=== PATIENT | male | born 1930 | race Caucasian/White ===

== ENCOUNTER → 2016-06-16 | Outpatient (CLI) | payer OTHER | LOC: CIMAGING 13:16 | PROVIDERS: ATTEND Surgery | DX: M79.671 Pain in right foot (principal); M85.80 Other specified disorders of bone density and structure, unspecified site; M77.31 Calcaneal spur, right foot | CPT/HCPCS: 73650-PO ==

== ENCOUNTER → 2016-08-07 | Outpatient (CLI) | payer OTHER | LOC: BHFA 14:00 | PROVIDERS: ATTEND Internal Medicine Cardiovascular Disease | DX: Z01.810 Encounter for preprocedural cardiovascular examination (principal) | CPT/HCPCS: 78452; 93017; A9500; J2785 ==

== ENCOUNTER → 2016-08-20 | Day surgery (SDC) | payer OTHER ==
[~2016-08-20] MED LIST: ACETAMINOPHEN 500 MG TAB PO PRN; ALBUTEROL 3 ML DEYVIAL IH PRN; BACITRACIN 50,000 UNITS/10 ML SYR IRR ONE; BUPIVACAINE 0.25% 30 ML SDV ONE; BUPIVACAINE/EPI 0.25% 30 ML SDV ONE; HYDROCODONE/APAP 5/325 TAB PO PRN; LABETALOL HCL 50 MG/10 ML SYR IVP PRN; LIDOCAINE 1% 2 ML INJ ID PRN; LIDOCAINE 2% 5 ML SDV ONE; LR 1,000 ML IV ONE; NALOXONE HCL 0.4 MG/ML INJ IVP PRN; ONDANSETRON 4 MG/2 ML VIAL IVP PRN; POLYMYXIN B SULFATE 500,000 UNIT/10 ML SYR IRR ONE; PROPOFOL/EMULSION 500 MG/50 ML BOTTLE IV ONE; ceFAZolin 2 GM/DEXTROSE 100 ML IV ONE; fentaNYL 100 MCG/2 ML INJ IVP PRN
--- NOTE | 2016-08-20 06:57 | PDANEPAE ---
ANE History of Present Illness non healing ulcer r foot ANE Past Medical History - Cardiovascular History Hx Hypertension: Yes Hx Arrhythmias: No Hx Chest Pain: No Hx Coronary Artery / Peripheral Vascular Disease: No Hx CHF / Valvular Disease: No Hx Palpitations: No - Pulmonary History Hx COPD: No Hx Asthma/Reactive Airway Disease: No Hx Recent Upper Respiratory Infection: No Hx Oxygen in Use at Home: No - Neurologic History Hx Cerebrovascular Accident: No Hx Seizures: No - Endocrine History Hx Diabetes: No Hypothyroid: No Hyperthyroid: No - Renal History Hx Renal Disorders: Yes - Liver History Hx Hepatic Disorders: No - Neurological & Psychiatric Hx Hx Neurological and Psychiatric Disorders: Yes ANE Review of Systems - Exercise capacity Exercise capacity: limited by disability - Systems Constitutional: Reports: no symptoms EENMT: Reports: no symptoms Cardiac: Reports: no symptoms Respiratory: Reports: no symptoms Gastrointestinal: Reports: no symptoms Muscolosketal: Reports: other (r foot ulcer, frx r leg) ANE Patient History - Allergies Allergies/Adverse Reactions: codeine Allergy (Intermediate, Verified 08/20/16 06:44) NAUSEA,LOOPY - Anes Hx Anes Hx: no prior problems - Smoking Hx Smoking Status: Former smoker - Alcohol Use Alcohol Use: Heavy - Family Anes Hx Family Anes Hx: none ANE Labs/Vital Signs - Vital Signs Height: 170.18 cm Weight: 63.503 kg ANE Physical Exam - Airway Mallampati Score: Class 2 Mouth exam: poor dentition - Pulmonary Pulmonary: no respiratory distress - Cardiovascular Cardiovascular: regular rate and rhythym - ASA Status ASA Status: III ANE Anesthesia Plan Anesthesia Plan: MAC
[2016-08-20 07:02] VITALS: RESP 16
--- NOTE | 2016-08-20 07:19 | PDHPUP ---
History & Physical Update H&P update statement: This history and physical update is based on an assessment of the patient which was completed after admission or registration (within 24 hours), but prior to the surgery/procedure. H&P update: H&P reviewed & patient examined, no change in patient's condition since H&P completed
--- NOTE | 2016-08-20 08:43 | POSTOPPROG ---
Post Op Note Date of Operation: 08/20/16 Surgeon: Norman Braun Print Cutter: none Anesthesiologist: amirah Anesthesia: IV Sedation (20cc .25% marcaine) Pre-op Diagnosis: osteomyelitis right calcaneus Post-op Diagnosis: same Indication: bone infection Procedure: debridement of osteomyelitis right calcaneus Findings: bone erosion with no abcess Inf/Abcess present in the surg proc area at time of surgery?: Yes Depth: Deep Incisional (Fascial) (including bone) Total fluids administered: none Drains: Other (none)
--- NOTE | 2016-08-20 08:44 | POSTANESTH ---
Post Anesthetic Evaluation Cardiovascular Status: Normal, Stable Respiratory Status: Normal, Stable Level of Consciousness/Mental Status: Can Participate in Eval Pain Control: Adequate, Prn Tx Ordered Nausea/Vomiting Control: Adequate, Prn Tx Ordered Complications Possibly Related to Anesthesia: None Noted
[2016-08-20 09:48] VITALS: TEMP 97.7
[2016-08-20 09:53] VITALS: O2SAT 95
[2016-08-20 09:59] VITALS: BP 154/75; PULSE 78
--- NOTE | 2016-08-20 14:29 | GOP ---
[f rep st] OPERATIVE REPORT DATE OF OPERATION: 08/20/2016 SURGEON: Norman Braun DPM GRANULATING MACHINE OPERATOR: None. ANESTHESIA: Local with MAC. ANESTHESIOLOGIST: Robbie Randolph MD. PREOPERATIVE DIAGNOSIS: 1. Chronic ulceration, plantar medial right calcaneus. 2. Osteomyelitis right calcaneus. POSTOPERATIVE DIAGNOSIS: 1. Chronic ulceration, plantar medial right calcaneus. 2. Osteomyelitis right calcaneus. PROCEDURE PERFORMED: 1. Debridement of right calcaneus for osteomyelitis. 2. Adjacent tissue transfer for foot ulceration defect right. FINDINGS: ESTIMATED BLOOD LOSS: Less than 20 cc. DESCRIPTION OF PROCEDURE: Patient presented to [facility] and was cleared for the int ended procedure. Patient was taken to the operating room and placed on table in supine position. I V sedation was started per the anesthesia department. At this time, patient was moved into a prone position. Following completion of this, the area was anesthetized in an infiltrative nerve block fa shion. Foot was prepped, scrubbed, and draped in usual sterile fashion. A pneumatic ankle tourniqu et was placed on the right extremity but was not inflated. At this time, attention was directed to the obvious ulceration on the plantar medial surface of the right calcaneus. It was decided that 2 converging semi-elliptical incisions would be made around the ulceration tissue. This was made full thickness, and the ulcerative tissue was dissected free and removed. It was sent in for culture an d sensitivity at this time. Upon completion of this, dissection was continued down to the level of the calcaneus. A [place] elevator was utilized to reflect the periosteum both dorsal and plantar to a llow for adequate visualization to the calcaneus. At this point, there was noted to be some erosion of the calcaneus that had occurred. Utilizing an osteotome and mallet, this area was resected down to healthy solid bone. The bone was sent in for culture and sensitivity to be followed up by patho logical evaluation. Upon completion of this, the IV antibiotics were started. The area was flushed with 3 L of antibiotic rinse in a pulse lavage fashion. There was no evidence of any abscess forma tion or purulent drainage from the site. It was decided that primary closure would be obtained. De ep closure was obtained with 3-0 Vicryl followed by subcutaneous closure with 5-0 Vicryl and skin cl osure with 3-0 nylon. The areas were dressed with Betadine-soaked Adaptics, 4 x 4's, Kerlix, and Co ban. Patient was taken to recovery room, vital signs stable, vascular supply intact digits 1 throug h 5 bilaterally. PATHOLOGY: Bone and soft tissue specimen sent for culture and sensitivity and pathological evaluati on. HEMOSTASIS: None. MATERIALS: None. INJECTABLES: 20 cc 0.25% Marcaine plain preoperatively. COMPLICATIONS: None. /[id number]/MODL
== END | disposition home or self-care (01) ==
LOC: FSGY 06:28
PROVIDERS: ATTEND Podiatrist Primary Podiatric Medicine
PROC: 0QBL0ZX Excision of Right Tarsal, Open Approach, Diagnostic (ICD-10-PCS; principal; 2016-08-20 07:15)
PROC: 0J9Q0ZX Drainage of Right Foot Subcutaneous Tissue and Fascia, Open Approach, Diagnostic (ICD-10-PCS; principal; 2016-08-20 07:15)
PROC: 0JXQ0ZZ Transfer Right Foot Subcutaneous Tissue and Fascia, Open Approach (ICD-10-PCS; principal; 2016-08-20 07:15)
DX: E11.69 Type 2 diabetes mellitus with other specified complication (principal); M86.171 Other acute osteomyelitis, right ankle and foot; E11.621 Type 2 diabetes mellitus with foot ulcer; L97.419 Non-pressure chronic ulcer of right heel and midfoot with unspecified severity; E78.5 Hyperlipidemia, unspecified; J44.9 Chronic obstructive pulmonary disease, unspecified; I10 Essential (primary) hypertension; F17.200 Nicotine dependence, unspecified, uncomplicated
CPT/HCPCS: J0690; J2704

== ENCOUNTER 2017-01-29 16:32 | Inpatient (IN) | payer OTHER ==
--- NOTE | 2017-01-29 17:00 | CPEKG ---
Heart Rate: 95 RR Interval: 632 P-R Interval: 188 QRSD Interval: 92 QT Interval: 352 QTC Interval: 443 P [place]: 54 QRS [place]: 9 T Wave [place]: 11 EKG Severity - ABNORMAL ECG - EKG Impression: SINUS RHYTHM EKG Impression: PROBABLE INFERIOR INFARCT, AGE INDETERMINATE EKG Impression: BORDERLINE R WAVE PROGRESSION, ANTERIOR LEADS Electronically Signed By: Sravanthi Onofre 29-Jan-2017 19:19:16
[2017-01-29 17:15] LABS: % IMMATURE GRANULYOCYTES 0.7 % (0.0-1.1); ABSOLUTE IMMATURE GRANULOCYTES 0.08 10^3/uL (0.00-0.10); ADD DIFF? NO; ADD MORPH? NO; ADD SCAN? NO; ATYPICAL LYMPHOCYTE FLAG 0 (0-99); FRAGMENT RBC FLAG 0 (0-99); HEMATOCRIT 23.1 % (40.0-51.0); HEMOGLOBIN 7.9 g/dL (13.7-17.5); LEFT SHIFT FLG 0 (0-99); LIPEMIA HEMOLYSIS FLAG 90 (0-99); MEAN CELL HEMOGLOBIN 31.7 pg (27.9-34.1); MEAN CELL HEMOGLOBIN CONCENTR. 34.2 g/dL (32.4-36.7); MEAN CELL VOLUME 92.8 fL (81.5-99.8); PLATELET CLUMPS FLAG 40 (0-99); PLATELET COUNT 481 10^3/uL (150-400); RED BLOOD CELL COUNT 2.49 10^6/uL (4.40-6.38); RED CELL DISTRIBUTION WIDTH 14.8 % (11.5-15.2)
[2017-01-29] MEDS ORDERED: PANTOPRAZOLE SODIUM 80 MG in NS 100 ML IV ONE (17:19)
--- NOTE | 2017-01-29 17:24 | EDPHY ---
H & P Time Seen by Provider: 01/29/17 16:40 HPI/ROS: CHIEF COMPLAINT: GI bleeding HISTORY OF PRESENT ILLNESS: 86-year-old male with a history of peptic ulcer disease and chronic renal insufficiency presents with rectal bleeding. According to the patient, his hematocrit was checked today and was quite low at 23. He had 1 episode of bloody stool. Associated with a few days of soreness in his abdomen, but no localized abdominal pain. No prior history of GI bleeding. No dizziness or increased weakness. REVIEW OF SYSTEMS: Constitutional: No fever, no chills Eyes: No visual changes ENT: No sore throat Respiratory: No cough, no shortness of breath Cardiac: No chest pain Gastrointestinal: No nausea, no vomiting Genitourinary: No hematuria, no dysuria Musculoskeletal: No leg pain or swelling Skin: No rash Neurological: No headache Psychiatric: No depression Past Medical/Surgical History: Chronic renal insufficiency Peptic ulcer disease Social History: No recent alcohol Smoking Status: Former smoker Physical Exam: General Appearance: Alert, pleasant, smiling Eyes: Pupils equal and round, conjunctival pallor ENT, Mouth: Mucous membranes dry Neck: Normal inspection Respiratory: Lungs are clear to auscultation Cardiovascular: Regular rate and rhythm Gastrointestinal: Abdomen is soft and nontender Rectal: Melena Neurological: A&O, nonfocal exam Skin: Warm and dry Extremities: Normal inspection Psychiatric: Mood and affect normal Constitutional: Initial Vital Signs Temperature (C) 37 C 01/29/17 16:45 Heart Rate 88 01/29/17 16:45 Respiratory Rate 18 01/29/17 16:45 Blood Pressure 181/85 H 01/29/17 16:45 O2 Sat (%) 92 01/29/17 16:45 O2 Delivery Mode Room Air Allergies/Adverse Reactions: codeine Allergy (Intermediate, Verified 08/20/16 06:44) NAUSEA,LOOPY NSAIDS (Non-Steroidal Anti-Inflamma Allergy (Verified 01/29/17 16:45) Home Medications: Medication Instructions Recorded Acetaminophen [Tylenol ES 500 mg 1,000 mg PO BID #0 08/20/16 (*)] Citalopram [CeleXA] 20 mg PO DAILY #0 08/20/16 Cyclobenzaprine [Flexeril 10 MG 10 mg PO HS #0 08/20/16 (*)] Atorvastatin Calcium [Lipitor 10 10 mg PO DAILY 01/29/17 mg (*)] Herbals/Supplements -Info Only 1 ea PO DAILY 01/29/17 Lisinopril [Zestril 5 mg (*)] 5 mg PO DAILY 01/29/17 Medical Decision Making - Diagnostics EKG Interpretation: EKG interpreted by me reveals normal sinus rhythm, rate 95, inferior Q-waves, poor R-wave progression. Impression: Abnormal EKG ED Course/Re-evaluation: This patient presents with melena and hematocrit of 23. Most likely secondary to peptic ulcer disease, with known history of peptic ulcer disease. 2 IVs placed, IV normal saline 500 mL and Protonix IV drip was started. 1 U packed red blood cells given. Risks and benefits of transfusion discussed with the patient and he consents to a transfusion. The patient was stable throughout his emergency department stay. No further episodes of melena. Dr. Douglass was consulted for admission. Dr. Lockwood was consulted and will see the patient in the hospital. Differential Diagnosis: Differential diagnosis includes though not limited to esophageal varices, peptic ulcer disease, diverticular bleed, AVM, hemorrhagic shock - Data Points Laboratory Results: Laboratory Results 01/29/17 17:04 01/29/17 17:04 01/29/17 01/29/17 01/29/17 17:15 17:04 17:04 WBC 12.10 10^3/uL H 10^3/uL (3.80-9.50) RBC 2.49 10^6/uL L 10^6/uL (4.40-6.38) Hgb 7.9 g/dL L g/dL (13.7-17.5) POC Hgb Hct 23.1 % L % (40.0-51.0) POC Hct MCV 92.8 fL fL (81.5-99.8) MCH 31.7 pg pg (27.9-34.1) MCHC 34.2 g/dL g/dL (32.4-36.7) RDW 14.8 % % (11.5-15.2) Plt Count 481 10^3/uL H 10^3/uL (150-400) MPV 9.0 fL fL (8.7-11.7) Neut % (Auto) 72.9 % % (39.3-74.2) Lymph % (Auto) 16.3 % % (15.0-45.0) [place] % (Auto) 9.2 % % (4.5-13.0) Eos % (Auto) 0.6 % % (0.6-7.6) Baso % (Auto) 0.3 % % (0.3-1.7) Nucleat RBC Rel Count 0.0 % % (0.0-0.2) Absolute Neuts (auto) 8.83 10^3/uL H 10^3/uL (1.70-6.50) Absolute Lymphs (auto) 1.97 10^3/uL 10^3/uL (1.00-3.00) Absolute Monos (auto) 1.11 10^3/uL H 10^3/uL (0.30-0.80) Absolute Eos (auto) 0.07 10^3/uL 10^3/uL (0.03-0.40) Absolute Basos (auto) 0.04 10^3/uL 10^3/uL (0.02-0.10) Absolute Nucleated RBC 0.00 10^3/uL 10^3/uL (0-0.01) Immature Gran % 0.7 % % (0.0-1.1) Immature Gran # 0.08 10^3/uL 10^3/uL (0.00-0.10) POC Sodium Sodium 130 mEq/L L mEq/L (134-144) POC Potassium Potassium 4.4 mEq/L mEq/L (3.5-5.2) POC Chloride Chloride 98 mEq/L mEq/L (97-110) Carbon Dioxide 20 mEq/l L mEq/l (22-31) Anion Gap 12 mEq/L mEq/L (8-16) POC BUN BUN 83 mg/dL H mg/dL (7-23) Creatinine 2.1 mg/dL H mg/dL (0.7-1.3) POC Creatinine Estimated GFR 30 Glucose 113 mg/dL H mg/dL (70-100) POC Glucose Calcium 10.0 mg/dL mg/dL (8.5-10.4) Stool Occult Bld Scrn POSITIVE H (NEGATIVE) 01/29/17 17:01 WBC RBC Hgb POC Hgb 7.8 gm/dL L gm/dL (13.7-17.5) Hct POC Hct 23 % L % (40-51) MCV MCH MCHC RDW Plt Count MPV Neut % (Auto) Lymph % (Auto) [place] % (Auto) Eos % (Auto) Baso % (Auto) Nucleat RBC Rel Count Absolute Neuts (auto) Absolute Lymphs (auto) Absolute Monos (auto) Absolute Eos (auto) Absolute Basos (auto) Absolute Nucleated RBC Immature Gran % Immature Gran # POC Sodium 133 mEq/L L mEq/L (134-144) Sodium POC Potassium 4.1 mEq/L mEq/L (3.3-5.0) Potassium POC Chloride 102 mEq/L mEq/L (97-110) Chloride Carbon Dioxide Anion Gap POC BUN 82 mg/dL H mg/dL (7-23) BUN Creatinine POC Creatinine 2.4 mg/dL H mg/dL (0.7-1.3) Estimated GFR Glucose POC Glucose 116 mg/dL H mg/dL (70-100) Calcium Stool Occult Bld Scrn Medications Given: Pantoprazole Sodium 80 mg/ (Sodium Chloride) 100 mls @ 10 mls/hr IV Q10H ONE Stop: 01/30/17 03:18 Last Admin: 01/29/17 18:11 Dose: 100 mls Discontinued Medications Sodium Chloride (Ns) 500 mls @ 0 mls/hr IV EDNOW ONE; Wide Open PRN Reason: Protocol Stop: 01/29/17 18:22 Last Admin: 01/29/17 18:00 Dose: 500 mls Point of Care Test Results: 01/29/17 17:01 POC Sodium 133 L POC Potassium 4.1 POC Chloride 102 POC BUN 82 H POC Creatinine 2.4 H POC Glucose 116 H Departure - Departure Disposition: [facility] Inpatient Acute Clinical Impression: Severe anemia Gastrointestinal hemorrhage Qualifiers: GI bleed type/associated pathology: melena Qualified Code(s): K92.1 - Melena Condition: Fair
[2017-01-29 17:30] LABS: ANION GAP 12 mEq/L (8-16); CARBON DIOXIDE 20 mEq/l (22-31); CHLORIDE 98 mEq/L (97-110); CREATININE 2.1 mg/dL (0.7-1.3); GLOMERULAR FILTRATION RATE 30; GLUCOSE 113 mg/dL (70-100); POTASSIUM 4.4 mEq/L (3.5-5.2); SODIUM 130 mEq/L (134-144)
[2017-01-29] MEDS ORDERED: ONDANSETRON 4 MG/2 ML VIAL IVP PRN (17:40)
[2017-01-29] MEDS ORDERED: LORazepam 2 MG/ML INJ IVP PRN (17:44)
[2017-01-29] MEDS ORDERED: NS 500 ML IV ONE (18:21)
--- NOTE | 2017-01-29 18:40 | GHP ---
[f rep st] HISTORY AND PHYSICAL DATE OF ADMISSION: 01/29/2017 CHIEF COMPLAINT: Melena. HISTORY OF PRESENT ILLNESS: An 86-year-old male with a history of peptic ulcer disease and chronic k idney disease, who presents after noting melena by outpatient care provider. In the emergency depart ment patient denies any active abdominal discomfort. Denies any lightheadedness, chest pain, shortne ss of breath. Denies emesis. Denies difficulty taking food or changes in his oral intake. Simply w as being evaluated for his chronic indwelling Mcarthur catheter when he was noted to have melenic-appear ing stools and was diverted to the emergency department for evaluation. The patient notes he has a history of peptic ulcer disease. Does not believe he has had a significan t bleed in the past. Reports that he has had a colonoscopy in near past but cannot recall when. Hayde ieves that it was normal. PAST MEDICAL HISTORY: 1. Peptic ulcer disease. 2. Chronic kidney disease. 3. 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 SOCIAL HISTORY: Patient was a heavy smoker, 2-3 packs a day until a year ago. Now he smokes a cigar ette or two a day. The patient reports drinking 4-5 alcoholic beverages starting at noon, in the aft ernoon until the evening. Denies any illicit drugs or marijuana. ADVANCE DIRECTIVE: The patient is do not resuscitate. His daughter is his MD KELLEE. REVIEW OF SYSTEMS: A 10-point review of systems is negative, with the exception of that reported in the HPI. PHYSICAL EXAMINATION: VITAL SIGNS: Blood pressure 181/85, heart rate 88, respiratory rate 18. 92% on room air, 37.0. GENERAL: This is a thin-appearing male lying flat in bed. HEENT: Notable for mo ist mucous membranes. Eye exam is negative for any icterus. CARDIAC: Patient is regular rate and rh ythm. PULMONARY: Clear to auscultation bilaterally. GASTROINTESTINAL: Positive bowel sounds. Abd omen is soft, mildly tender to palpation in the right lower quadrant. No rebound or guarding. UROLO GIC: There is a chronic indwelling catheter with a leg bag. MUSCULOSKELETAL: Negative for any lowe r extremity edema. SKIN: Negative for any rashes. NEUROLOGIC: The patient is moving all 4 extremi ties. PSYCHIATRIC: He is pleasant and cooperative on interview and examination. DATA: White count 12.1, appears near his baseline. Hemoglobin 7.9, hematocrit 23.1, and platelets o f 481. Sodium 133, creatinine 2.1, BUN 83, blood glucose 116. EKG, which I personally reviewed and interpreted, shows sinus rhythm, normal axis, normal intervals, with no acute ST-T changes. ASSESSMENT AND PLAN: This is an 86-year-old male, presenting with melena. 1. Suspected acute upper gastrointestinal bleed. The patient has a history of peptic ulcer disease with a very heavy alcohol consumption reported at home. Suspect we have a gastric source for his ble eding, either from ulcer disease, alcohol-related gastritis. Will admit the patient. Establish appr opriate peripheral access. Transfuse with packed red blood cells and continue normal saline maintena nce fluids. Discussed the case with Gastroenterology. Will plan for esophagogastroduodenoscopy in t he morning. 2. Alcohol abuse. The patient reports taking 4-5 alcoholic beverages an evening. He describes them as small; however, it is consistent use at a high level daily. Will place a CIWA protocol and monit or the patient for any evolving signs of withdrawal. Have written for intravenous thiamin. 3. Chronic kidney disease. Patient appears near his baseline creatinine at 2.1. Can follow after b lood and fluid resuscitation. His BUN is elevated likely secondary to his gastrointestinal bleed. 4. Peptic ulcer disease. Will place the patient on intravenous proton pump inhibitor drip until sco ping is complete tomorrow. 5. Hypertension. Will not treat his blood pressure currently, as I suspect it is related to the str ess of his presentation. He is certainly at risk more for hypotension in the setting of acute bleed than anything. 6. Prophylaxis. Lovenox is contraindicated. Will place sequential compression devices. 7. Diet. Nothing by mouth with intravenous fluids. DISPOSITION: I expect him less than 2 midnights if the patient's EGD is successful and identifies a treatable source. I have discussed the case with the emergency room physician. Patient will be tria ged to the medical-surgical floor for care. /[id number]/MODL
[2017-01-29] MEDS: THIAMINE HCL 500 MG in NS 100 ML IV SCH (21:24)
[2017-01-29] MEDS: PANTOPRAZOLE SODIUM 80 MG in NS 100 ML IV SCH (21:26)
[2017-01-29] MEDS: NS 1,000 ML IV SCH (22:36)
[2017-01-30] MEDS: PANTOPRAZOLE SODIUM 80 MG in NS 100 ML IV SCH (04:12)
[2017-01-30 05:02] LABS: % IMMATURE GRANULYOCYTES 0.6 % (0.0-1.1); ABSOLUTE IMMATURE GRANULOCYTES 0.06 10^3/uL (0.00-0.10); ADD DIFF? NO; ADD MORPH? YES; ADD SCAN? NO; ATYPICAL LYMPHOCYTE FLAG 0 (0-99); FRAGMENT RBC FLAG 0 (0-99); LEFT SHIFT FLG 0 (0-99); LIPEMIA HEMOLYSIS FLAG 90 (0-99); MEAN CELL HEMOGLOBIN 30.7 pg (27.9-34.1); MEAN CELL HEMOGLOBIN CONCENTR. 33.9 g/dL (32.4-36.7); MEAN CELL VOLUME 90.5 fL (81.5-99.8); MEAN PLATELET VOLUME 8.8 fL (8.7-11.7); PLATELET CLUMPS FLAG 0 (0-99); PLATELET COUNT 329 10^3/uL (150-400); RED BLOOD CELL COUNT 1.99 10^6/uL (4.40-6.38); RED CELL DISTRIBUTION WIDTH 15.9 % (11.5-15.2)
[2017-01-30 05:09] LABS: HEMOGLOBIN 6.1 g/dL (13.7-17.5)
[2017-01-30 05:19] LABS: ANION GAP 9 mEq/L (8-16); CALCIUM 8.6 mg/dL (8.5-10.4); CARBON DIOXIDE 21 mEq/l (22-31); CHLORIDE 106 mEq/L (97-110); CREATININE 1.9 mg/dL (0.7-1.3); GLOMERULAR FILTRATION RATE 34; GLUCOSE 88 mg/dL (70-100); MAGNESIUM 2.2 mg/dL (1.6-2.3); POTASSIUM 4.3 mEq/L (3.5-5.2); SODIUM 136 mEq/L (134-144)
[2017-01-30 05:32] LABS: MICROCYTES 1+; PLATELET ESTIMATE ADEQUATE (ADEQ); POLYCHROMASIA 1+
[2017-01-30] MEDS: THIAMINE HCL 500 MG in NS 100 ML IV SCH (10:35)
[2017-01-30] MEDS: NS 1,000 ML IV SCH (10:36)
--- NOTE | 2017-01-30 12:26 | PDANEPAE ---
ANE History of Present Illness GI bleed ANE Past Medical History - Cardiovascular History Hx Hypertension: Yes Hx Arrhythmias: No Hx Chest Pain: No Hx Coronary Artery / Peripheral Vascular Disease: No Hx CHF / Valvular Disease: No Hx Palpitations: No - Pulmonary History Hx COPD: No Hx Asthma/Reactive Airway Disease: No Hx Recent Upper Respiratory Infection: No Hx Oxygen in Use at Home: No Hx Sleep Apnea: No Sleep Apnea Screening Result - Last Documented: Positive - Neurologic History Hx Cerebrovascular Accident: No Hx Seizures: No - Endocrine History Hx Diabetes: No - Renal History Hx Renal Disorders: Yes Renal History Comment: DIALYSIS X 6WKS, 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 FX RIGHT FEMUR, ANE Review of Systems Review of Systems: ANE Patient History - Allergies Allergies/Adverse Reactions: codeine Allergy (Intermediate, Verified 08/20/16 06:44) NAUSEA,LOOPY NSAIDS (Non-Steroidal Anti-Inflamma Allergy (Verified 01/29/17 16:45) - Home Medications Home Medications: Acetaminophen [Tylenol ES 500 mg (*)] 1,000 mg PO BID #0 08/20/16 [Last Taken ] Citalopram [CeleXA] 20 mg PO DAILY #0 08/20/16 [Last Taken 08/19/16] Cyclobenzaprine [Flexeril 10 MG (*)] 10 mg PO HS #0 08/20/16 [Last Taken ] Atorvastatin Calcium [Lipitor 10 mg (*)] 10 mg PO DAILY 01/29/17 [Last Taken Unknown] Herbals/Supplements -Info Only 1 ea PO DAILY 01/29/17 [Last Taken Unknown] Lisinopril [Zestril 5 mg (*)] 5 mg PO DAILY 01/29/17 [Last Taken Unknown] - NPO status NPO Since - Liquids (Date): 01/29/17 NPO Since - Liquids (Time): 23:55 NPO Since - Solids (Date): 01/29/17 NPO Since - Solids (Time): 23:55 - Smoking Hx Smoking Status: Former smoker - Family Anes Hx Family Hx Anesthesia Complications: NONE ANE Labs/Vital Signs - Labs Result Diagrams: 01/30/17 04:45 01/30/17 04:45 - Vital Signs Blood Pressure: 119/58 Heart Rate: 95 Respiratory Rate: 12 O2 Sat (%): 97 Height: 170.18 cm Weight: 55.7 kg ANE Physical Exam - Airway Neck exam: FROM Mallampati Score: Class 2 Mouth exam: poor dentition - Pulmonary Pulmonary: no respiratory distress - Cardiovascular Cardiovascular: regular rate and rhythym - ASA Status ASA Status: III ANE Anesthesia Plan Anesthesia Plan: GA with mask
[2017-01-30] MEDS ORDERED: PROPOFOL 200 MG/20 ML VIAL ONE (12:30)
[2017-01-30] MEDS ORDERED: LIDOCAINE 2% 5 ML SDV ONE (12:31)
--- NOTE | 2017-01-30 12:52 | POSTOPPROG ---
Post Op Note Date of Operation: 01/30/17 Surgeon: Ezequiel Lockwood Anesthesiologist: Tarik Guzman MD Anesthesia: Other (Specify) (IV general) Pre-op Diagnosis: UGI bleed from PUD Post-op Diagnosis: Duodenal ulcerations, clean based, but deep Indication: melena, post hemorrhgic anemia Procedure: egd and bx Findings: large deep duodenal ulcerations, not bleeding Inf/Abcess present in the surg proc area at time of surgery?: No EBL: Minimal (few ml from antral bx) Total fluids administered: 200 ml NS Complications: none immediate
[2017-01-30] MEDS ORDERED: OXYCODONE/APAP 5/325 TAB PO PRN (13:04)
[2017-01-30] MEDS ORDERED: ACETAMINOPHEN 500 MG TAB PO PRN (13:04)
[2017-01-30] MEDS ORDERED: HYDROCODONE/APAP 5/325 TAB PO PRN (13:04)
[2017-01-30] MEDS ORDERED: NALOXONE HCL 0.4 MG/ML INJ IVP PRN (13:04)
[2017-01-30] MEDS ORDERED: HYDROmorphONE/DILAUDID 1 MG/ML INJ IVP PRN (13:04)
[2017-01-30] MEDS ORDERED: ONDANSETRON 4 MG/2 ML VIAL IVP PRN (13:04)
[2017-01-30] MEDS ORDERED: NS 500 ML IV PRN (13:04)
[2017-01-30] MEDS ORDERED: fentaNYL 100 MCG/2 ML INJ IVP PRN (13:04)
[2017-01-30] MEDS ORDERED: ALBUTEROL 3 ML DEYVIAL IH PRN (13:04)
--- NOTE | 2017-01-30 13:09 | GIREPORT ---
[facility] - Endoscopy Department Patient Name: Pérez Cullen Procedure Date: 01/30/2017 12:34 PM Patient Type: Inpatient Attending MD/ ER Physician: Doug Briggs Procedure: Upper GI endoscopy Indications: Acute post hemorrhagic anemia, Melena Providers: Edgar Lockwood MD Medicines: Total IV Anesthesia (TIVA) Complications: No immediate complications. Estimated blood loss: Minimal. Description of Procedure: After obtaining informed consent, the endoscope was passed under direct vision. Throughout the procedure, the patient's blood pressure, pulse, and oxygen saturations were monitored continuously. The Endoscope was intro duced through the mouth, and advanced to the second part of duodenum. [facility] GI endoscopy was accomplished without difficulty. The patient tolerated th e procedure well. Findings: The examined esophagus was normal. Diffuse mildly erythematous mucosa without bleeding was found in the ga stric antrum. Biopsies were taken with a cold forceps for histology. Estimate d blood loss was minimal. Two non-bleeding cratered duodenal ulcers with no stigmata of bleeding were found in the first portion of the duodenum and in the second portion of the duodenum. The largest lesion was 7 mm in largest dimension. The exam was otherwise without abnormality. Estimated Blood Loss: Estimated blood loss was minimal. Post Op Diagnosis: - Normal esophagus. - Erythematous mucosa in the antrum. Biopsied. - Multiple non-bleeding duodenal ulcers with no stigmata of bleeding. - The examination was otherwise normal. Recommendation: - Await pathology results. - My office will call with the pathology result with 5-7 days. If you h ave not heard from my office by 12-14, do not assume the pathology is anuel l, please call [phone] to get the pathology results. - Use Protonix (pantoprazole) 40 mg PO BID for 4 weeks. The daily for additional 4 weeks. 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 - Cardiac diet. - [facility] patient to [facility] for [facility] care. - Do an upper GI series at appointment to be scheduled. I would like to see how deep those ulcerations are - will discuss with radiology. - Thank you for allowing me to help in your patient's care. Do not hesi cortez to call with any questions. Attending Participation: I personally performed the entire procedure. Fabián Hernández M.D Edgar Lockwood MD 01/30/2017 1:09:14 PM This report has been signed electronicallyMathew MD Fabián Number of Addenda: 0 Note Initiated On: 01/30/2017 12:34 PM [email or web address]
--- NOTE | 2017-01-30 14:49 | HOSPPROG ---
Hospitalist Progress Note Assessment/Plan: DIAGNOSES: -acute upper GI bleed -post hemorrhagic anemia hemoglobin at 6 -acute hemodynamic induced renal failure, improving PLANS: -he is receiving his 2nd unit transfuse red blood cells at this time -continue proton pump inhibitors -observe for stability -repeat blood counts, consider further transient based on blood counts and hemodynamics, ability to ambulate well etc -plan on repeat endoscopy for healing after set weeks SUBJECTIVE: Seen after endoscopy today Denies nausea, abdominal pain, chest discomfort dyspnea or other concerning symptoms at this time No further bleeding or melena noted OBJECTIVE Vitals reviewed: Mild attention otherwise normal Exam: alert oriented skin warm dry color ok resps not labored lungs clear BSs heart regular abd soft nondistended nontender, bowel sounds present limbs warm, no edema iv site ok Laboratory data: Hemoglobin down to 6 this morning Platelets stable Creatinine down to 1.9 Objective: Vital Signs Temp Pulse Resp BP Pulse Ox 36.7 C 83 16 162/89 H 96 01/30/17 13:45 01/30/17 13:45 01/30/17 13:45 01/30/17 13:45 01/30/17 13:45 Laboratory Results 01/30/17 04:45 01/30/17 04:45 01/29/17 01/30/17 01/31/17 06:59 06:59 06:59 Intake Total 700 250 Output Total 500 300 Balance 200 -50 ICD10 Worksheet Patient Problems: Problems Problem Status Onset Gastrointestinal hemorrhage Acute Severe anemia Acute
--- NOTE | 2017-01-30 16:26 | GCON ---
[f rep st] CONSULTATION DATE OF CONSULTATION: 01/30/2017 REFERRING PHYSICIAN: Mara Douglass MD INDICATION FOR CONSULTATION: Presumed upper GI bleed. HISTORY OF PRESENT ILLNESS: The patient is a pleasant 86-year-old man with past medical history sign ificant for chronic kidney disease, peptic ulcer disease, history of choledocholithiasis, status post ERCP, stent placement, and subsequent cholecystectomy. He was sent to the hospital after outpatient care provider recognized that he had had melena. Patient states that he has had diarrhea for a number of days, but this has stopped. It is not sure if this is melena. He said he did not look at the stoo l. He does have an indwelling Mcarthur catheter for which he was being evaluated at the time that the ca re provider recognized he had melena. He was noted to have a significant decrease in hemoglobin and h ematocrit, elevated BUN and creatinine, consistent with an upper GI bleed. He is admitted to further that treatment, and I am called to help evaluate and treat in that regard. PAST MEDICAL HISTORY: Peptic ulcer disease, chronic kidney disease, status post cholecystectomy, ind welling Mcarthur catheter. SOCIAL HISTORY: Alcohol: He drinks at least 4-5 margaritas during the day. He used to smoke 2-3 pack s until a year ago. He now smokes a few cigarettes a day. FAMILY HISTORY: No GI cancers, malignancies to his knowledge. PAST SURGICAL HISTORY: Cholecystectomy. Indwelling Mcarthur catheter. MEDICATIONS: In hospital include Ativan p.r.n., Zofran p.r.n., pantoprazole 80 mg IV, thiamine. ALLERGIES: Codeine, which causes confusion. REVIEW OF SYSTEMS: A complete review of systems was performed and is negative other than that noted in the HPI. Other pertinent negatives include no chest pain, diaphoresis, palpitations, nausea, vomit ing, dysphagia, odynophagia, or early satiety. PHYSICAL EXAM: GENERAL: Chronically ill-appearing, elderly male sitting in his bed. No acute distres s. VITAL SIGNS: Blood pressure 119/58, pulse 88, respirations are 12. He is 95 heart rate, 97% on alice m air. Temperature is 36.6. EYES: Anicteric. CHANTELLE. EOMI. MOUTH: No lesions. He is edentulous. NECK: S upple. No JVD. BACK: No spine tenderness. No CVA tenderness. LUNGS: Coarse breath sounds. I do not ap preciate any rhonchi, rales, or egophony. CARDIAC: S1, S2. Regular rate and rhythm. ABDOMEN: Bowel so unds are normal in pitch and frequency. Abdomen is soft with mild epigastric, subxiphoid tenderness. No rebound. No guarding. No hepatosplenomegaly. EXTREMITIES: No cyanosis, clubbing, edema. NEUROLOGIC : Cranial nerves intact. Nonfocal. SKIN: No rashes. GENITOURINARY: He does have a chronic indwelling catheter. LABORATORY DATA: From today (01/30/2017): WBC 9.57, hemoglobin 6.1, hematocrit 18.1. sodium 136, p otassium 4.3, chloride 106, bicarb is 21, BUN 84, creatinine 1.9. Previous laboratory data from June o this year (07/22/2016): Hemoglobin was 10.7, hematocrit 31.7, creatinine 1.8, BUN 25. ASSESSMENT: Posthemorrhagic anemia with melena, elevated BUN and creatinine, consistent with upper g astrointestinal bleed in this 86-year-old male with chronic renal failure. RECOMMENDATIONS: 1. Continue PPI. 2. EGD for evaluation of presumed upper GI bleed. 3. 2 units packed red blood cells already ordered by hospitalists. 4. Stable hemoglobin and hematocrit. Transfuse if hemoglobin less than 7. 5. Avoid aspirin, nonsteroidal anti-inflammatory drugs for now. 6. Further recommendations to follow results of EGD. Thank you for allowing me to participate in this patient's healthcare. Do not hesitate to call me ruma piedra. /[id number]/MODL
[2017-01-30] MEDS ORDERED: LISINOPRIL 5 MG TAB PO SCH (16:29)
[2017-01-30] MEDS ORDERED: hydrALAZINE 25 MG TAB PO PRN (16:31)
--- NOTE | 2017-01-30 16:58 | ASMTCMCOM ---
CM Note CM Note Notes: Pt. is an 86-year-old man who goes by "Kelton' with DNR status. Pt. admitted with a GI hemorrhage. Pt. receiving blood. Experiencing fatigue. Getting an EGD. Hx. peptic ulcer disease. Pt. reportedly lives with his , uses a wheelchair mostly, and goes to [employer] adult day program. Daughter who is MDPOA reportedly lives only "1 mile away" per RN. PT recommending Home w/ 24-hour supervision vs HC vs H. OT has not consulted yet. CM to follow Pt. for d/c POC. TBD at this time. Date Signed: 01/30/2017 04:57 PM Electronically Signed By:Tiesha Davison LCSW
[2017-01-30] MEDS: ATORVASTATIN CALCIUM 10 MG TAB PO SCH (17:06)
[2017-01-30] MEDS: CITALOPRAM 20 MG TAB PO SCH (17:06)
--- NOTE | 2017-01-30 17:53 | PDMN ---
Medical Necessity Medical necessity: Pt meets INPT criteria per MD as of 01/30/17; est. LOS >2 MN for eval/mgmt of acute UGI bleed, anemia requiring ongoing transfusion, acute hemodynamic induced renal failure, significant htn per MD progress note.
[2017-01-30] MEDS: PANTOPRAZOLE SODIUM 40 MG TAB PO SCH (20:15)
[2017-01-31 06:46] LABS: % IMMATURE GRANULYOCYTES 0.6 % (0.0-1.1); ABSOLUTE IMMATURE GRANULOCYTES 0.06 10^3/uL (0.00-0.10); ADD DIFF? NO; ADD MORPH? NO; ADD SCAN? NO; ATYPICAL LYMPHOCYTE FLAG 0 (0-99); FRAGMENT RBC FLAG 0 (0-99); HEMATOCRIT 26.7 % (40.0-51.0); HEMOGLOBIN 9.2 g/dL (13.7-17.5); LEFT SHIFT FLG 0 (0-99); LIPEMIA HEMOLYSIS FLAG 90 (0-99); MEAN CELL HEMOGLOBIN 31.2 pg (27.9-34.1); MEAN CELL HEMOGLOBIN CONCENTR. 34.5 g/dL (32.4-36.7); MEAN CELL VOLUME 90.5 fL (81.5-99.8); MEAN PLATELET VOLUME 8.9 fL (8.7-11.7); PLATELET CLUMPS FLAG 0 (0-99); PLATELET COUNT 328 10^3/uL (150-400); RED BLOOD CELL COUNT 2.95 10^6/uL (4.40-6.38); RED CELL DISTRIBUTION WIDTH 15.6 % (11.5-15.2)
[2017-01-31 06:50] LABS: ALANINE AMINOTRANSFERASE 21 IU/L (21-72); ALBUMIN 2.2 g/dL (3.5-5.0); ALKALINE PHOSPHATASE 71 IU/L (38-126); ANION GAP 9 mEq/L (8-16); ASPARTATE AMINOTRANSFERASE 14 IU/L (17-59); BILIRUBIN,TOTAL 0.5 mg/dL (0.1-1.4); CALCIUM 9.1 mg/dL (8.5-10.4); CARBON DIOXIDE 19 mEq/l (22-31); CHLORIDE 113 mEq/L (97-110); CREATININE 1.8 mg/dL (0.7-1.3); GLOMERULAR FILTRATION RATE 36; GLUCOSE 83 mg/dL (70-100); POTASSIUM 4.1 mEq/L (3.5-5.2); SODIUM 141 mEq/L (134-144); TOTAL PROTEIN 4.7 g/dL (6.3-8.2)
[2017-01-31] MEDS: PANTOPRAZOLE SODIUM 40 MG TAB PO SCH (09:48)
[2017-01-31] MEDS: CITALOPRAM 20 MG TAB PO SCH (09:48)
[2017-01-31] MEDS: ATORVASTATIN CALCIUM 10 MG TAB PO SCH (09:48)
[2017-01-31] MEDS: THIAMINE HCL 500 MG in NS 100 ML IV SCH (09:49)
--- NOTE | 2017-01-31 10:05 | SOAPPROG ---
HEATHER Progress Note Assessment/Plan: Assessment:Plan: 1) DU - PPI BID for 4 weeks, then daily prob refund specialist to prevent recurrent ulceration. I have a vm into radiology about what study to order to assess depth of ulcers and make sure no complication imminent 2) Anemia - no more bleeding, HB up above 9 with PRBC, daily CBC 3) Renal - BUN decreasing with no more bleeding will follow 01/31/17 10:04 Subjective: CC- UGI bleed from large DU's, post hemorrhagic anemia He is feeling OK, appetite not great, no abdo pain, no further bleeding Objective: Vital Signs Temp Pulse Resp BP Pulse Ox 36.5 C 87 14 155/83 H 93 01/31/17 07:33 01/31/17 07:33 01/31/17 07:33 01/31/17 09:48 01/31/17 07:33 Laboratory Results 01/31/17 05:15 01/31/17 05:15 01/30/17 01/31/17 02/01/17 05:59 05:59 05:59 Output Total 1325 Balance -1325 Laboratory Tests 01/29/17 01/29/17 01/30/17 17:04 17:04 04:45 Hgb 7.9 L 6.1 L BUN 83 H Creatinine 2.1 H 01/30/17 01/31/17 01/31/17 04:45 05:15 05:15 Hgb 9.2 L BUN 84 H 74 H Creatinine 1.9 H 1.8 H A+Ox3 CTA S1S2 +BS, soft mild epi tenderness no r/g ICD10 Worksheet Patient Problems: Problems Problem Status Onset Gastrointestinal hemorrhage Acute Severe anemia Acute
[2017-01-31] MEDS ORDERED: POLYETHYLENE GLYCOL 3350 17 GM PKT PO PRN (12:47)
[2017-01-31] MEDS ORDERED: LACTULOSE 20 GM/30 ML UDCUP PO PRN (12:47)
[2017-01-31] MEDS ORDERED: BISACODYL 10 MG SUPP PR PRN (12:47)
[2017-01-31] MEDS ORDERED: SENNOSIDES/DOCUSATE SODIUM TAB PO SCH (13:00)
[2017-01-31] MEDS ORDERED: MAGNESIUM CITRATE 300 ML BOTTLE PO ONE (14:23)
[2017-01-31] MEDS ORDERED: BISACODYL 5 MG EC TAB PO ONE (14:30)
[2017-01-31] MEDS ORDERED: BISACODYL 5 MG EC TAB PO PRN (14:30)
[2017-01-31 15:48] VITALS: BP 153/85; PULSE 93; RESP 18; TEMP 98.2; O2SAT 97
--- NOTE | 2017-01-31 16:46 | PDIAF ---
- Diagnosis Diagnosis: Duodenal ulcer w/ GI bleed, CYNTHIA Code Status: Do Not Resuscitate - Medication Management Discharge Medications: Medications to Continue on Transfer Acetaminophen [Tylenol ES 500 mg (*)] 1,000 mg PO BID #0 08/20/16 [Last Taken ] Citalopram [CeleXA 20 MG] 20 mg PO DAILY #0 08/20/16 [Last Taken 08/19/16] Cyclobenzaprine [Flexeril 10 MG (*)] 10 mg PO HS #0 08/20/16 [Last Taken ] Atorvastatin Calcium [Lipitor 10 mg (*)] 10 mg PO DAILY 01/29/17 [Last Taken Unknown] Herbals/Supplements -Info Only 1 ea PO DAILY 01/29/17 [Last Taken Unknown] Pantoprazole Sodium [Protonix 40mg (*)] 40 mg PO BID #60 tab 01/31/17 [Last Taken Unknown] amLODIPine BESYLATE [Norvasc 2.5 mg (*)] 2.5 mg PO DAILY #30 tab 01/31/17 [Last Taken Unknown] Prison Antibiotics: NA Discharge Medications: Refer to the Discharge Home Medication list for PRN reason. PICC Care - Routine: N/A - Orders Services needed: Home Care, Registered Nurse, Physical Therapy, Occupational Therapy Home Care Face to Face: I certify that this patient was under my care and that I had the required [id number] encounter meeting the encounter requirements on the discharge day. My findings support the fact that the patient is homebound as defined in Home Care Face to Face Continued: CMS Chapter 7 Medicare Benefits Manual 30.1.1 , The condition of the patient is such that there exists a normal inability to leave home and consequently, leaving home would require a considerable and taxing effort. Isolation Type: None Diet Recommendation: no restrictions on diet Mcarthur: Not applicable Activity/Weight Bearing Restrictions: as tolerates - Labs/Radiology BMP Date: 02/08/17 HCT/HGB Date: 02/08/17 Call or Fax Lab and Imaging Results to: Dr. Andres Lockwood - Follow Up Care Current Providers and Referrals: Patient,NotPresent [Unknown] - As per Instructions Ezequiel Lockwood MD [Medical Doctor] - follow up in 1 week
--- NOTE | 2017-01-31 16:50 | ASMTCMCOM ---
CM Note CM Note Notes: Patient discharging home. I spoke with his daughter who asked me to contact the transportation company contracted with [employer] since patient is a client of theirs. Nadeen at [facility] told me to use [employer] - they did not have any wheelchair transport available but set up stretcher (at no add'l charge) for 1800 this evening. Patient's daughter Sammie notified. I also ordered home care through [facility] - PT/OT/RN. They will contact patient tomorrow. Date Signed: 01/31/2017 04:49 PM Electronically Signed By:Molly Schofield RN
--- NOTE | 2017-01-31 16:54 | PDDCSUM ---
Discharge Summary Discharge Summary: DISCHARGE SUMMARY FOLLOW-UP ITEMS: 1. Repeat creatinine BUN and lytes in 1 week 2. Repeat hemoglobin hematocrit in 1 week 3. Repeat upper endoscopy DATE OF ADMISSION: 01/29/2017 DATE OF DISCHARGE: 01/31/2017 DISCHARGE DIAGNOSES: 1. Acute upper gastrointestinal hemorrhage 2. Acute blood loss anemia 3. Acute kidney injury on chronic kidney disease stage 3 4. Acute hyponatremia CONSULTATIONS: Gastroenterology PROCEDURES / IMAGING: Upper endoscopy demonstrating 2 duodenal ulcers CHIEF COMPLAINT: Melena SUBJECTIVE: Patient is feeling well at time discharge, he has had a large bowel movement PHYSICAL EXAM ON DISCHARGE: Systolic blood pressure is 150, heart rate 90, afebrile overnight, satting well on room air, alert awake oriented x3, no apparent distress, abdomen is soft nontender nondistended, bowel sounds are present LABS ON DISCHARGE: Serum sodium 141, creatinine 1.8, potassium 4.1, liver panel unremarkable, fecal occult blood test positive HOSPITAL COURSE BY PROBLEM: The patient presented with acute upper gastrointestinal hemorrhage secondary to duodenal ulcer resulting in acute blood loss anemia and a hemoglobin of 6.1. The situation was hemodynamically unstable resulting in acute kidney injury on chronic kidney disease secondary to resultant hypovolemia. His AMANDA-inhibitor was discontinued, and he received IV normal saline as well as 2 U of packed red blood cells. His hyponatremia resolved with normal saline and stabilized by time of discharge. His creatinine peaked at 2.4 and down trended to 1.8 at time of discharge. He underwent upper endoscopy which demonstrated to duodenal ulcers and he was stabilized on twice daily proton pump inhibitor. He will be continued on the proton pump inhibitor twice daily for 4 weeks, then once daily thereafter. He did undergo a CT of the abdomen with oral contrast, which demonstrated inflammatory changes in the duodenal area but no other abnormalities. He had a large bowel movement prior to discharge. DISCHARGE MEDICATIONS: Please see official discharge medication reconciliation sheet in chart , pantoprazole 40 mg twice daily, lisinopril discontinued amlodipine 2.5 mg daily initiated. DISCHARGE INSTRUCTIONS: Please follow up with Dr. Andres Lockwood in 1 week and have labs checked prior to appointment. TIME SPENT: Greater than 30 minutes were spent on direct patient care, as well as discharge planning and preparation.
--- NOTE | 2017-02-01 11:43 | ASDISCHSUM ---
Discharge Information Plan Status:Has needs-TBD Medically Cleared to Leave: Discharge Date:01/31/2017 06:04 PM CM D/C Disposition:Home, Routine, Self-Care ADT D/C Disposition:Home, Routine, Self-Care Projected Discharge Date:01/31/2017 06:04 PM Transportation at D/C:ALS/BLS Discharge Delay Reason: Follow-Up Date:01/31/2017 06:04 PM Discharge Slot: Final Diagnosis: Placement Information Patient Contact Information Contact Name:FRANCIE Relationship: Address:[address] [place] [address] Work Phone: City:[place] Alternate Phone: State/Zip Code:[place] [address] Email: Financial Information Financial Class:HMO and PPO Plans Primary Plan Desc:[facility] [employer] Primary Plan Number:[id number] Secondary Plan Desc: Secondary Plan Number: Assessment Information [facility] CM Progress Note CM Note CM Note Notes: Pt. is an 86-year-old man who goes by "Kelton' with DNR status. Pt. admitted with a GI hemorrhage. Pt. receiving blood. Experiencing fatigue. Getting an EGD. Hx. peptic ulcer disease. Pt. reportedly lives with his , uses a wheelchair mostly, and goes to [facility] [employer] adult day program. Daughter who is MDPOA reportedly lives only "1 mile away" per RN. PT recommending Home w/ 24-hour supervision vs HC vs H. OT has not consulted yet. CM to follow Pt. for d/c POC. TBD at this time. Date Signed: 01/30/2017 04:57 PM Electronically Signed By:Tiesha Davison LCSW [facility] CM Progress Note CM Note CM Note Notes: Patient discharging home. I spoke with his daughter who asked me to contact the transportation company contracted with [employer] since patient is a client of theirs. Nadeen at [employer] told me to use [employer] - they did not have any wheelchair transport available but set up stretcher (at no add'l charge) for 1800 this evening. Patient's daughter Sammie notified. I also ordered home care through [facility] - PT/OT/RN. They will contact patient tomorrow. Date Signed: 01/31/2017 04:49 PM Electronically Signed By:Molly Schofield RN Intervention Information Intervention Type:*Occurence 72 Date of Service:01/29/2017 08:39 AM Patient Type:Inpatient Staff Member:JACQUELYN Shea, Ivana Hours: Discipline: Severity: Comment:
== END 2017-01-31 18:04 | disposition home or self-care (01) | DRG 378 ==
LOC: EDUNIT# → INTOOBSV 17:26 → F3E 19:37 → OBSVTOIN 01-30 17:17
PROVIDERS: ADMIT Hospitalist; ATTEND Hospitalist
PROC: 30233N1 Transfusion of Nonautologous Red Blood Cells into Peripheral Vein, Percutaneous Approach (ICD-10-PCS; 2017-01-29)
PROC: 0DB98ZX Excision of Duodenum, Via Natural or Artificial Opening Endoscopic, Diagnostic (ICD-10-PCS; principal; 2017-01-30 12:30)
PROC: 0DB68ZX Excision of Stomach, Via Natural or Artificial Opening Endoscopic, Diagnostic (ICD-10-PCS; principal; 2017-01-30 12:30)
DX: K26.4 Chronic or unspecified duodenal ulcer with hemorrhage (principal); D62 Acute posthemorrhagic anemia; N17.9 Acute kidney failure, unspecified; E87.1 Hypo-osmolality and hyponatremia; I12.9 Hypertensive chronic kidney disease with stage 1 through stage 4 chronic kidney disease, or unspecified chronic kidney disease; N18.3 Chronic kidney disease, stage 3 (moderate); F10.10 Alcohol abuse, uncomplicated
CPT/HCPCS: 82947-QW; 97116-GP; 97162-GP; 97166-GO; G0378; G8978-GP-CL; G8979-GP-CK; G8987-GO-CM; G8988-GO-CK; J2704; J3411; P9016

== ENCOUNTER → 2017-08-06 | Outpatient (CLI) | payer OTHER | LOC: FIMAGING 16:23 | PROVIDERS: ATTEND Nurse Practitioner Family | DX: J18.9 Pneumonia, unspecified organism (principal); R09.02 Hypoxemia; Z99.81 Dependence on supplemental oxygen ==

== ENCOUNTER 2017-08-17 14:13 | Inpatient (IN) | payer OTHER ==
--- NOTE | 2017-08-17 17:08 | PDGENHP ---
History and Physical - Chief Complaint dyspnea - History of Present Illness 87 yo male with h/o COPD on chronic O2, hypertension, A fib, pulmonary hypertension and recent pneumonia presents to [facility] for direct admission from [facility] due to insurance issues. He is followed by home health and his HH RN thought his breathing was more labored today and thus sent him to [facility] ED. He was recently treated for pneumonia. He denies ongoing cough, no fevers/ chills. Denies CP. Has some baseline SOB, but not worse. History Information - Allergies/Home Medication List Allergies/Adverse Reactions: codeine Allergy (Intermediate, Verified 08/20/16 06:44) NAUSEA,LOOPY NSAIDS (Non-Steroidal Anti-Inflamma [NSAIDS (Non-Steroidal Anti-Inflammatory Drug)] Allergy (Unknown, Unverified 02/01/17 09:49) Home Medications: Acetaminophen [Tylenol ES 500 mg (*)] 1,000 mg PO BID PRN #0 08/20/16 [Last Taken 08/19/16] Citalopram [CeleXA 20 MG] 20 mg PO DAILY #0 08/20/16 [Last Taken 08/17/17] Cyclobenzaprine [Flexeril 10 MG (*)] 10 mg PO HS #0 08/20/16 [Last Taken ] Herbals/Supplements -Info Only 1 ea PO DAILY 01/29/17 [Last Taken Unknown] Pantoprazole Sodium [Protonix 40mg (*)] 40 mg PO BID 08/17/17 [Last Taken 09:00] I have personally reviewed and updated: family history, medical history, social history, surgical history - Past Medical History atrial fibrillation, COPD, hypertension Additional medical history: Chronic hypoxemic respiratory failure - 2 LPM baseline. pulmonary hypertension: PAP 50-55 on echo 07/2015. VHD: mild-mod MR, TR on echo 07/2015. depression. Sick sinus syndrome. PUD. Alcohol abuse. CKD baseline Cr 2.3. Anemia. Arthritis. H/O tib/fib fracture. GERD. H/O GIB - duodenal ulcer - Surgical History Additional surgical history: Right femur fracture surgically repaired - Family History Positive for: non-pertinent - Social History Smoking Status: Former smoker Alcohol Use: Heavy Drug Use: None Additional social history: , lives independently. Quit smoking 2014. 5- 6 vodka or whiskey drinks per day Review of Systems Review of Systems: ROS: 10pt was reviewed & negative except for what was stated in HPI & below Physical Exam Physical Exam: Temp Pulse Resp BP Pulse Ox 37.1 C 92 159/92 H 96 08/17/17 15:47 08/17/17 15:47 08/17/17 15:47 08/17/17 15:47 O2 (L/minute) 2 Constitutional: no apparent distress Eyes: PERRL Ears, Nose, Mouth, Throat: moist mucous membranes Cardiovascular: irregularly irregular, other (No JVD) Respiratory: no respiratory distress, other (bibasilar crackles, no wheezing) Gastrointestinal: normoactive bowel sounds, soft, non-tender abdomen Skin: warm Musculoskeletal: generalized weakness Psychiatric: interacting appropriately Lab Data & Imaging Review 08/17/17 18:15 08/17/17 18:15 Assessment & Plan Assessment: Dyspnea - Noted by home health RN, not patient. On baseline O2 of 2 LPM in setting of COPD. Trop elevated at [facility] at 0.118. BNP was up to 33,600 though difficult to interpret with CKD. Chest pain free. Wells score 0. CXR at OSH showed cardiomegaly, RLL atelectasis vs pneumonia, small b/l pleural effusions. -trend trop -nebs for COPD -check echo -cont ceftriaxone / azithro for presumed CAP (started on atbx as outpt, unclear which one), send PCT -may need diuresis, but defer for now with elevated Cr Chronic hypoxemic respiratory failure 2/2 COPD -nebs as above, defer steroids in absence of wheezing CYNTHIA / CKD - baseline Cr 2.3, was 3 at OSH. Query cardiorenal. -check urine Cr and urine Na to calculate FeNa for further evaluation -trend and consider nephrology consult if persists Hyperkalemia - received kayexalate at OSH prior to transfer -recheck serum K now Elevated troponin - chest pain free. Difficult to interpret with elevated Cr. Repeat EKG as EKG from OSH unavailable. -trend trop Alcohol abuse - CIWA Pulmonary hypertension - echo as above VHD - check echo Chronic indwelling diego Atrial fibrillation - Rate controlled, not on anti-coagulation, possibly due to h/o ?recent GIB or fall risk DVT PPLX - heparin Full code Dispo - admit to inpt, anticipate >48 hrs hospitalization for ongoing evaluation and management of dyspnea. PT/OT evals requested.
[2017-08-17] MEDS ORDERED: ONDANSETRON DISINTEGRATING 4 MG TAB PO PRN (17:12)
[2017-08-17] MEDS ORDERED: ONDANSETRON 4 MG/2 ML VIAL IVP PRN (17:12)
[2017-08-17] MEDS ORDERED: LORazepam 1 MG TAB PO PRN (17:16)
[2017-08-17] MEDS ORDERED: LORazepam 2 MG/ML INJ IVP PRN (17:16)
[2017-08-17] MEDS ORDERED: FLUMAZENIL 0.5 MG/5 ML MDV IVP PRN (17:16)
[2017-08-17] MEDS ORDERED: ALBUTEROL 3 ML DEYVIAL IH PRN (17:39)
[2017-08-17] MEDS: THIAMINE HCL 500 MG in NS 100 ML IV SCH (18:00)
[2017-08-17 18:21] LABS: PLATELET COUNT 303 10^3/uL (150-400)
[2017-08-17 18:28] LABS: INR 1.18 (0.83-1.16); PROTIME(PATIENT) 15.2 SEC (12.0-15.0)
[2017-08-17] MEDS: PANTOPRAZOLE SODIUM 40 MG TAB PO SCH (20:22)
[2017-08-17] MEDS: ACETAMINOPHEN 325 MG TAB PO PRN (20:26)
--- NOTE | 2017-08-17 20:58 | CPEKG ---
Heart Rate: 89 RR Interval: 674 P-R Interval: 196 QRSD Interval: 90 QT Interval: 324 QTC Interval: 395 P Sanders: 67 QRS Sanders: 185 EKG Severity - ABNORMAL ECG - EKG Impression: SINUS RHYTHM EKG Impression: ANTERIOR INFARCT, AGE INDETERMINATE Electronically Signed By: Tato Moreno 18-Aug-2017 11:01:20
[2017-08-17] MEDS: IPRATROPIUM/ALBUTEROL 3 ML DEYVIAL IH SCH (20:59)
[2017-08-17] MEDS: HEPARIN 5,000 UNIT/0.5 ML INJ SC SCH (22:54)
[2017-08-17] MEDS ORDERED: SODIUM POLY SULF 15 GM/60 ML BOTTLE PO ONE (22:57)
[2017-08-18] MEDS: IPRATROPIUM/ALBUTEROL 3 ML DEYVIAL IH SCH ×4 (04:24→20:43)
--- NOTE | 2017-08-18 08:52 | HOSPPROG ---
Hospitalist Progress Note Assessment/Plan: DIAGNOSES: -acute on chronic hypoxemic respiratory failure * Multifactorial heart and lung issues -acute heart failure with pulmonary edema, uncertain cardiac physiology at this time * Will need echo for assessment; with elevated troponins will need to have some suspicion for possible coronary disease but this may demand ischemia -possible pneumonia though absence of fever or elevated white blood cell count cast some doubt on this diagnosis -acute on chronic kidney disease * Suspect cardiorenal physiology -hyperkalemia -lethargy/encephalopathy: Multifactorial etiology -heavy alcohol use on daily basis * At this time it would be risky for the patient to go through alcohol withdrawal, so as long as he is awake enough will keep him on at least some alcohol now -marked deconditioning, gait instability, fall risk Patient seen by me on multidisciplinary rounds and hospitals rounds PLANS: * IV diuresis will start this morning * Follow potassium closely, this may improve with diuresis * Will check magnesium level * Continue empiric antibiotic for possible pneumonia at this time * Bronchodilators * Will give some low-dose alcohol to help reduce risk of significant withdrawal * Follow renal function closely, nephrology consult if worsens * Avoid sedating medications as possible, employ other measures for management of encephalopathy SUBJECTIVE: Patient denies pain, still feels short of breath Difficult to assess symptoms due to significant lethargy and lack of participation and discussion by patient OBJECTIVE Vitals reviewed: Some hypertension, occasional mild tachycardia, no fever Lending Consultant, my review: Exam: Lethargic, does arouse and participates to a small degree in some conversation, does not look in distress skin warm dry color ok Multiple ecchymoses over arms resps not labored lungs bibasilar rales greater on left heart regular abd soft nondistended nontender, bowel sounds present limbs warm, no edema iv site ok Chest x-ray done this morning, my read interpretation images: Significant pulmonary edema, vascular congestion, and cardiomegaly are present, difficult to determine if any infiltrates of infectious nature might be present or not Laboratory data: Sodium now elevated 144 potassium still high 5.7 creatinine slightly worse at 2.7, glucose 254 Objective: Vital Signs Temp Pulse Resp BP Pulse Ox 36.8 C 101 H 18 160/103 H 96 08/18/17 07:16 08/18/17 07:16 08/18/17 07:16 08/18/17 07:16 06/20/18 07:16 Laboratory Results 08/17/17 18:15 08/18/17 03:07 08/17/17 08/18/17 08/19/17 06:59 06:59 06:59 Intake Total 360 Output Total 25 Balance 335 PT 15.2 SEC (12.0-15.0) H 08/17/17 18:15 INR 1.18 (0.83-1.16) H 08/17/17 18:15 - Time Spent With Patient Time Spent with Patient: greater than 35 minutes Time Spent with Patient: Greater than 35 minutes spent on this patients care, greater than 50% of time spent counseling, educating, and coordinating care regarding the above mentioned plan. ICD10 Worksheet Patient Problems: Problems Problem Status Onset Gastrointestinal hemorrhage Acute Severe anemia Acute
[2017-08-18] MEDS: FUROSEMIDE 40 MG/4 ML VIAL IVP SCH ×2 (09:53→16:35)
[2017-08-18] MEDS: HEPARIN 5,000 UNIT/0.5 ML INJ SC SCH ×3 (09:58→22:43)
[2017-08-18] MEDS: PANTOPRAZOLE SODIUM 40 MG TAB PO SCH ×2 (09:58→22:43)
[2017-08-18] MEDS: CITALOPRAM 20 MG TAB PO SCH (09:58)
[2017-08-18] MEDS: THIAMINE HCL 500 MG in NS 100 ML IV SCH (10:02)
[2017-08-18] MEDS: AZITHROMYCIN IV 500 MG in NS 250 ML IV SCH (10:37)
--- NOTE | 2017-08-18 11:21 | PDMN ---
Medical Necessity Medical necessity: MCG M-190 Heart Failure, a-2 days. Pt admitted w/acute heart failure and pulm edema, BNP 33,600, IV diuresis, acute on chronic hypoxemia requiring O2, acute on chronic kidney disease, creat 2.7,possible PNA- being treated w/IV ABX's, hyperkalemia and hypernatremia, lethargy and encephalopathy , markedly deconditioned, other comorbidities including COPD, ETOH abuse- on CIWA protocol, pulm HTN, afib
--- NOTE | 2017-08-18 11:34 | WOCRNPDOC ---
WOCRN Advanced Assessment Note - Skin Integrity Problem, Advanced Assess Coccyx Pressure Injury Dressing Type: Mepilex Border Dressing Description: Clean/Dry, Intact Exudate Amount: None Integumentary Issue Intervention: Visualized Under Dressing Kamla Wound Tissue: Blanching Kamla Wound Swelling: None Wound Bed Color: Greenleaf, Yellow Wound Bed Constitution: Red/Greenleaf - Non Granular Tissue (70%, 30% pale white ) Wound Edges: Attached Site Odor: None Site Measurement - Head-to-Toe Length X Width X Depth (cm): 1.4x0.3x0.2 Pressure Injury Stage: Stage 2 Pressure Injury Present on Admit: Yes Skin Integrity Problem Comment: Stage 2 pressure injury present on admission. Area cleaned with periwipes to visualize. Pt sitting in wc on a bed pillow. Betty VALLADARES retrieved a blue waffle cushion for wc. Will round again next week. Jacy Huff RN, Wound care team. Zuleyka WASHINGTON and Olimpia VALLADARES in room for care.
--- NOTE | 2017-08-18 13:54 | ASMTCASEMG ---
Living Arrangements What is your living Answers: With Spouse arrangement? Who do you live with? Type Of Residence What kind of residence do Answers: House you live in? Discharge Plan Comments Coordination Status Comments Notes: Pts case discussed in morning rounds. Pt is a 87 y/o man admitted for dyspnea, hyperkalemia, afib, and elevated trop. PT is recommending home w/ existing services. Pt has caregivers that are w/ pt daily. Pt has [facility] and goes to a day program 3x a week. CM spoke to Lisa Denny NP at [facility]. Pts cor status needs to be changed to DNR. Dr. Martinez is aware. Lisa will be sending over pts MOST form. Lisa reports that pt does not have any interested in stopping his daily consumption of ETOH. Lisa would like to be notified once pt is medically stable to d/c and info faxed over (P#: [phone], F#: [phone]). CM to follow. Plan: Home w/ [facility] f/u Date Signed: 08/18/2017 01:53 PM Electronically Signed By:KATIE Herrera
--- NOTE | 2017-08-18 13:57 | ECHO ---
[email or web address] [address] [address] Main: [phone] Fax: Transthoracic Echocardiogram Name: JOSE ALMONTE MR#: [id number] Study Date: 08/18/2017 Study Time: 08:54 AM Date of : 1930 Age: 87 year(s) Height: 170.2 cm (67 in.) Weight: 65.32 kg (144 lb.) BSA: 1.76 m2 Gender: Male Examination: Echo Indication: Dyspnea/h/o valve disease Image Quality: Contrast: Requested by: Cynthia Vuong BP: 160 mmHg/103 mmHg Heart Rate: Rhythm: Indication: Dyspnea/h/o valve disease Procedure Staff Funeral Arranger: Jessica Suresh [facility] Reading Physician: Alex Pearce MD Requesting Provider: Conclusions: Normal size left ventricle. Borderline concentric LV hypertrophy. Normal global systolic LV function. The ejection fraction is estimated to be 15-20 %. No regional wall motion abnormality. Diastolic dysfunction is present. . RV function appears reduced.. The left atrium is mildly dilated. The right atrium is mildly dilated. Mild mitral annular calcification. Mild to moderate mitral regurgitation. Mild aortic cusp calcification is noted. The aortic valve is tri-leaflet. Trivial to mild aortic valve regurgitation. Mild to moderate tricuspid valve regurgitation. The pulmonary artery pressure is mildly increased. RVSP is 53mmHG.. No previous Measurements: Chambers Valvular Assessment AV/MV Valvular Assessment TV/PV Normal Normal Normal Name Value Range Name Value Range Name Value Range Ao Annalisa (MM): 3.4 cm (2.2 cm-3.7 AV meanP mmHg ( - ) TR Vmax: 3.29 mm/s ( - ) cm) MV E Vmax: 1.15 m/s ( - ) TR PGmax: 43 mmHg ( - ) IVSd (2D): 1.2 cm (0.6 cm-1.1 MV A Vmax: 1.48 m/s ( - ) syst. PAP: 53 mmHg ( - ) cm) MV E/A: 0.78 ( - ) LVDd (2D): 5.1 cm (4.2 cm-5.9 cm) Patient: JOSE ALMONTE Study Date: 08/18/2017 Page 1 of 2 08:54 AM LVDs (2D): 4.6 cm (2.1 cm-4 cm) LVPWd (2D): 1.1 cm (0.6 cm-1 cm) LVOTd 2.1 cm 2.1 cm mm LVEF (MOD4): 22 % (>=55 %) EF Range: 15-20 % Continued Measurements: Chambers Valvular Assessment AV/MV Valvular Assessment TV/PV Name Value Name Value Name Value LADs: 3.8 cm MV E' Septal: 0.02 m/s CVP (est.): 10 mmHg LADs Lon.8 cm MV E/E' Septal: 47.10 LA Area: 22.8 cm2 MV E/E' Lateral: 16.40 MR Vena Contracta: 0.4 cm Additional Vessels Name Value Ao Ascendin.8 cm Findings: Left Ventricle: Normal size left ventricle. Borderline concentric LV hypertrophy. Normal global systolic LV function. The ejection fraction is estimated to be 15-20 %. No regional wall motion abnormality. Diastolic dysfunction is present. . Right Ventricle: Normal size right ventricle. RV function appears reduced.. Left Atrium: The left atrium is mildly dilated. Right Atrium: The right atrium is mildly dilated. Mitral Valve: Mild mitral annular calcification. Mild to moderate mitral regurgitation. Aortic Valve: Mild aortic cusp calcification is noted. The aortic valve is tri-leaflet. Trivial to mild aortic valve regurgitation. Tricuspid Valve: The tricuspid valve is normal in appearance and function. Mild to moderate tricuspid valve regurgitation. The pulmonary artery pressure is mildly increased. RVSP is 53mmHG.. Pulmonic Valve: The pulmonic valve is normal in appearance and function. Trivial pulmonic valve regurgitation. Aorta: The aorta is normal. Pericardium: Trivial pericardial effusion. Left side pleural effusion. Exam Comments: No previous echo to compare.. (No Signature Object) Patient: JOSE ALMONTE Study Date: 08/18/2017 Page 2 of 2 08:54 AM [id number]
[2017-08-19] MEDS: IPRATROPIUM/ALBUTEROL 3 ML DEYVIAL IH SCH ×4 (06:04→19:47)
[2017-08-19] MEDS: HEPARIN 5,000 UNIT/0.5 ML INJ SC SCH ×3 (06:27→22:06)
[2017-08-19] MEDS: ACETAMINOPHEN 325 MG TAB PO PRN (06:30)
[2017-08-19] MEDS: FUROSEMIDE 40 MG/4 ML VIAL IVP SCH ×2 (08:05→15:37)
[2017-08-19] MEDS: PANTOPRAZOLE SODIUM 40 MG TAB PO SCH ×2 (08:05→22:06)
[2017-08-19] MEDS: CITALOPRAM 20 MG TAB PO SCH (08:05)
[2017-08-19] MEDS: THIAMINE HCL 500 MG in NS 100 ML IV SCH (09:04)
[2017-08-19] MEDS: AZITHROMYCIN IV 500 MG in NS 250 ML IV SCH (09:39)
--- NOTE | 2017-08-19 11:08 | HOSPPROG ---
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% EF without wall motion abnormalities and patient denies recent chest pains * Uncertain etiology, could potentially be ischemic, alcohol induced, or otherwise -possible pneumonia though absence of fever or elevated white blood cell count cast some doubt on this diagnosis * Mildly elevated procalcitonin but not sure how significant this is in his current state -acute on chronic kidney disease (recent baseline creatinine appears to be about 2.4) * Suspect cardiorenal physiology * Worse today so far despite no demonstrated net diuresis -hyperkalemia * Improved with diuresis but will need watch carefully particularly with his renal function -lethargy/encephalopathy: Multifactorial etiology * Improve somewhat, likely due to all of above -heavy alcohol use on daily basis 5-6 vodka drinks per day * Will need to watch closely for any signs of withdrawal and treat early -marked deconditioning, gait instability, fall risk At this time the patient symptomatically is slightly improved but remains with significant pulmonary edema and congestive heart failure. It appears were getting some reasonably good diuresis though numbers hard to tell . His BUN and creatinine continue to rise. I suspect we are doing with a very difficult cardiorenal syndrome and will have some limitations in terms of how much diuresis we can accomplish. It may need to go fairly slowly. Patient seen by me on multidisciplinary rounds and hospitalist rounds PLANS: * Continue IV diuresis; will have to try and rely on examination, weights and chest x-ray to gauge his actual diuresis as he is not able to maintain continence so far * Follow potassium closely * Continue empiric antibiotic for possible pneumonia at this time but will change to p.o. * Bronchodilators * Will give some low-dose alcohol to help reduce risk of significant withdrawal * Avoid sedating medications as possible, employ other measures for management of encephalopathy SUBJECTIVE: Today feels still short of breath but less so than yesterday, feels like he has better energy Still very weak Feels like he will have a better appetite than yesterday OBJECTIVE Vitals reviewed: Blood pressure is better, still some occasional mild tachycardia no fever respirations good: Using 2 L oxygen Senior Property Manager, my review: Sinus with some ectopy I&O: numbers recorded by nurses so far did not document any diuresis for the past 2 days but the nurses are reporting that this is due to continuous incontinence and that they do feel that he is actually having some significant diuresis. He has not been weighed yet today Exam: More alert today, still somewhat lethargic, more talkative His speech is difficult to understand and he says he has had trouble talking now for probably on the order of weeks but can't recall the timing of onset, denies any other weakness or neurologic symptoms skin warm dry color ok Multiple ecchymoses over arms resps not labored at rest on oxygen lungs bibasilar rales greater on left persist heart regular abd soft nondistended nontender, bowel sounds present limbs warm, no edema iv site ok Laboratory data: Creatinine slightly higher today at 2.9, potassium now in normal range, sodium remains slightly high Sugars somewhat variable Echocardiogram shows ejection fraction 15-20% but no wall motion abnormalities, also has some right ventricular weakness Objective: Vital Signs Temp Pulse Resp BP Pulse Ox 36.4 C 114 H 19 136/91 H 98 08/19/17 07:11 08/19/17 07:11 08/19/17 07:11 08/19/17 07:11 08/19/17 07:11 Laboratory Results 08/17/17 18:15 08/19/17 03:20 08/18/17 08/19/17 08/20/17 06:59 06:59 06:59 Intake Total 360 990 400 Output Total 25 Balance 335 990 400 PT 15.2 SEC (12.0-15.0) H 08/17/17 18:15 INR 1.18 (0.83-1.16) H 08/17/17 18:15 - Time Spent With Patient Time Spent with Patient: greater than 35 minutes Time Spent with Patient: Greater than 35 minutes spent on this patients care, greater than 50% of time spent counseling, educating, and coordinating care regarding the above mentioned plan. ICD10 Worksheet Patient Problems: Problems Problem Status Onset Gastrointestinal hemorrhage Acute Severe anemia Acute
--- NOTE | 2017-08-19 14:44 | ASMTCMCOM ---
CM Note CM Note Notes: Pts case discussed in tx rounds. CM spoke to Jordyn at [facility] regarding d/c POC. Jordyn reports that the goal is to sign pt up w/ hospice. Jrodyn is hoping that Dr. Martinez is able to touch base w/ Dr. Bell at [facility]. CM to follow. Plan: Home w/ [facility] Date Signed: 08/19/2017 02:44 PM Electronically Signed By:KATIE Herrera
[2017-08-20] MEDS: IPRATROPIUM/ALBUTEROL 3 ML DEYVIAL IH SCH ×4 (05:24→22:02)
[2017-08-20] MEDS: HEPARIN 5,000 UNIT/0.5 ML INJ SC SCH ×3 (05:51→21:10)
--- NOTE | 2017-08-20 08:43 | HOSPPROG ---
Hospitalist Progress Note Assessment/Plan: #Acutely decompensated systolic HF -no WMA on echo. Ischemic vs. Etoh #CYNTHIA: cardiorenal. Watching with diuresis #Hyperkalemia: resolved #Etoh dependence #CAP: change to LQ, renally-dosed #Pyuria: <100k colonies on culture #Goals: I met with pt, , [facility] and daughter (on phone, RALPH). Family is opting for discharge with [facility] tomorrow with no further medical interventions. #Disp: DC to NH with hospice tomorrow Subjective: SOB improved Objective: Vital Signs Temp Pulse Resp BP Pulse Ox 36.6 C 100 17 145/87 H 91 L 08/20/17 07:21 08/20/17 07:21 08/20/17 07:21 08/20/17 07:21 08/20/17 07:21 Laboratory Results 08/17/17 18:15 08/19/17 03:20 08/19/17 08/20/17 08/21/17 05:59 05:59 05:59 Intake Total 990 1685 Balance 990 1685 PT 15.2 SEC (12.0-15.0) H 08/17/17 18:15 INR 1.18 (0.83-1.16) H 08/17/17 18:15 - Time Spent With Patient Time Spent with Patient: greater than 35 minutes Time Spent with Patient: Greater than 35 minutes spent on this patients care, greater than 50% of time spent counseling, educating, and coordinating care regarding the above mentioned plan. - Physical Exam Constitutional: no apparent distress Eyes: PERRL Ears, Nose, Mouth, Throat: moist mucous membranes Cardiovascular: regular rate and rhythym, edema (trace pedal edema) Respiratory: inspiratory crackles (left lung base) Gastrointestinal: normoactive bowel sounds Genitourinary: no bladder fullness Skin: warm Musculoskeletal: full muscle strength Neurologic: CN II-XII Intact Psychiatric: other (tearful) ICD10 Worksheet Patient Problems: Problems Problem Status Onset Gastrointestinal hemorrhage Acute Severe anemia Acute
[2017-08-20] MEDS: CITALOPRAM 20 MG TAB PO SCH (09:34)
[2017-08-20] MEDS: THIAMINE HCL 100 MG TAB PO SCH (09:34)
[2017-08-20] MEDS: PANTOPRAZOLE SODIUM 40 MG TAB PO SCH ×2 (09:34→21:10)
--- NOTE | 2017-08-20 12:19 | ASMTCMCOM ---
CM Note CM Note Notes: CM spoke to Dr. Millan and Jamee, RN regarding d/c POC. Jordyn from [facility] is arranging for [facility] to come in and meet w/ pt and for a hospice conversation. Pt and is agreeable to going to [facility] with [facility]. Anticipate d/c for tomorrow. [facility] will set up transport. Pt will need to go in a stretcher and will require o2. Referral sent to [facility] and [facility]. CM completed non triggering PASRR. CM to follow. Plan: [facility] w/ [facility] Date Signed: 08/20/2017 12:18 PM Electronically Signed By:KATIE Herrera
[2017-08-20] MEDS: FUROSEMIDE 20 MG/2 ML VIAL IVP SCH (14:33)
--- NOTE | 2017-08-20 15:21 | ASMTCMCOM ---
CM Note CM Note Notes: CM spoke to Jordyn at [facility]. Jordyn set up a stretcher for 1PM. [facility] will meet pt at [facility] at 2PM. Pts will meet pt at the hospital and ride w/ pt to [facility]. Brianna at [facility] will be the point person to call tomorrow. Her number is [phone]. CM to follow. Plan: [facility] w/ [facility] Date Signed: 08/20/2017 03:20 PM Electronically Signed By:KATIE Herrera
[2017-08-21] MEDS: IPRATROPIUM/ALBUTEROL 3 ML DEYVIAL IH SCH ×2 (04:47→11:34)
[2017-08-21] MEDS: HEPARIN 5,000 UNIT/0.5 ML INJ SC SCH (06:33)
--- NOTE | 2017-08-21 08:19 | PDIAF ---
- Diagnosis Diagnosis: Etoh withdrawal. heart failure Code Status: Do Not Resuscitate - Medication Management Discharge Medications: Medications to Continue on Transfer Acetaminophen [Tylenol ES 500 mg (*)] 1,000 mg PO BID PRN #0 08/20/16 [Last Taken 08/19/16] Citalopram [CeleXA 20 MG] 20 mg PO DAILY #0 08/20/16 [Last Taken 08/17/17] Cyclobenzaprine [Flexeril 10 MG (*)] 10 mg PO HS #0 08/20/16 [Last Taken ] Herbals/Supplements -Info Only 1 ea PO DAILY 01/29/17 [Last Taken Unknown] Pantoprazole Sodium [Protonix 40mg (*)] 40 mg PO BID 08/17/17 [Last Taken 09:00] Furosemide [Lasix 20 MG (*)] 20 mg PO BID #30 tab 08/21/17 [Last Taken Unknown] Discharge Medications: Refer to the Discharge Home Medication list for PRN reason. - Orders Services needed: Registered Nurse, Certified Side Hemmer Isolation Type: None Diet Recommendation: no restrictions on diet Diet Texture: Regular Texture Diet Additional Instructions: Wound care orders: Change dressings to Sacrum/Coccyx every 3 days and prn. 1. Clean with ns and gauze 2. Skin prep karin wound 3. Wound gel to wound bed 4. Cover with Mepilex Border Sacrum or bordered foam dressing Please follow up within 3- 4 weeks of discharge with outpatient Wound Healing Center if you continue to have issues with your wounds: You may reach them at [phone] for an appointment and continued management of your wounds. Please call them [facility] to schedule your appointment as they fill up quickly. If before that time you have any issues please follow up with your PCP. Wound care: Bedsore (Pressure injury) care: You have a stage 2 pressure injury (also known as a bedsore) on your tailbone ( the coccyx.) To help heal this wound and avoid further injury please do the following: * Reposition yourself frequently, at least every 15 minutes when sitting. We recommend sitting on an air cushion. Please never use a doughnut. * When youre in bed, try to rest on your side as much as possible, and change position every two hours (for example, turn or tilt from your right side toward your left).~ If you sleep on a sleep number or medical bed, keep the head of the bed below 30 degrees and keep all pressure off your low back for at least 5 minutes at least every two hours.~ * As needed, you may use Calazime, dimethicone moisture barrier cream, or any zpqp-zol-akfbcjh diaper rash cream to help prevent or treat a moisture-related rash to your bottom area and buttocks. * Please contact [facility] outpatient Wound Healing Center for an appointment, at [phone], If your wounds re/open or dont improve, or if you have any further questions or concerns. - Follow Up Care Current Providers and Referrals: Patient,NotPresent [Primary Care Provider] -
[2017-08-21] MEDS: THIAMINE HCL 100 MG TAB PO SCH (09:41)
[2017-08-21] MEDS: CITALOPRAM 20 MG TAB PO SCH (09:41)
[2017-08-21] MEDS: FUROSEMIDE 20 MG/2 ML VIAL IVP SCH (09:41)
[2017-08-21] MEDS: PANTOPRAZOLE SODIUM 40 MG TAB PO SCH (09:42)
--- NOTE | 2017-08-21 12:03 | GDS ---
[f rep st] DISCHARGE SUMMARY DISCHARGE DIAGNOSES: 1. Alcohol withdrawal. 2. Acutely decompensated systolic heart failure. 3. Acute kidney injury. 4. Alcohol dependence. 5. Pyuria. 6. Hyperkalemia. 7. Community-acquired pneumonia. 8. Atrial fibrillation. 9. Chronic hypoxemic respiratory failure. 10. Hypertension. 11. Pulmonary hypertension. HISTORY OF PRESENT ILLNESS: An 87-year-old male with alcohol dependence, chronic hypoxemic respirato ry failure. Was a direct admission from [facility] due to insurance issues. His home RN nurse thought bruce jones was more labored with breathing and sent him to their emergency room. He was recently treated from pneumonia. HOSPITAL COURSE BY PROBLEM: 1. Lhysx-ck-hgrzthj hypoxemic respiratory failure: This is secondary to acutely decompensated systo lic heart failure. Echocardiogram demonstrated EF of 15% to 20%. Possible pneumonia. He has been d iuresed here for comfort. 2. Acutely decompensated heart failure: This is likely secondary to chronic alcohol. He was initia vitor on Lasix with some improvement in his symptoms. 3. CYNTHIA: This cardiorenal with acute heart failure. Creatinine has been stable at 2.7. Monitoring closely with diuresis. 4. Hyperkalemia: Again secondary to CYNTHIA. This has resolved. 5. Mgcyp-qq-mphbfdg encephalopathy secondary to possible pneumonia as well as alcohol withdrawal. 6. Alcohol dependence: No active withdrawal symptoms now. 7. Goals of care: I met with patient's and his daughter as far as his goals. At this time, gi briana the fact that he will not likely quit alcohol, which is likely contributing to his heart failure, his daughter has opted for comfort care and hospice at discharge. He will be discharged today to [facility] with [facility]. DISPOSITION: Patient is stable for discharge to [facility] with [facility]. MEDICATIONS: Lasix 20 mg twice daily for comfort with dyspnea. PHYSICAL EXAMINATION: VITAL SIGNS: Today temperature 36.5, blood pressure 148/107, heart rate 90s t o 100s, respiration 14, 90% on 4 L. GENERAL: Chronically ill-appearing male, in no acute distress. HEENT: PERRLA. Moist mucous membranes. CV: Regular rate and rhythm. No lower extremity edema. LUNGS: A few crackles at bases. ABDOMEN: Soft, nontender, and nondistended. Positive bowel sounds . : No [place]. MUSCULOSKELETAL: 5/5 upper and lower extremity strength. NEURO: No focal defici ts. Time spent on discharge greater than 30 minutes coordinating discharge to [facility] and counseling p atient on medications. /[id number]/MODL
[2017-08-21 12:25] VITALS: BP 147/96
--- NOTE | 2017-08-21 12:25 | ASMTDCNOTE ---
Case Management Discharge Discharge Order Complete? Answers: Yes Patient to Obtain Answers: Other Notes: [facility] Medications Transport will Pick (Date 08/21/2017 01:00 PM & Time) Case Management Transport Answers: Yes Form Complete Faxed Final Orders Answers: Yes Notes: no PCS needed per [facility] Agency/Facility Transfer Answers: Yes Report Printed & Faxed to Receiving Agency Family Notified Answers: Yes Discharge Comments Notes: Pt will be picked up at 1300 today and transported to [facility]. [facility] will meet him there at 1400. Confirmed transport and Hospice mtg time w/Fredda from [facility] this AM. Orders and info sent to Brianna at - conf rec'd. Orders sent to [facility] as well. Brianna at reported that pt's is there at [facility] and therefore will not ride in ambulance w/pt to facility. Pt informed of this. Discussed w/ and RN who will call report. Date Signed: 08/21/2017 12:25 PM Electronically Signed By:Jenny Barrett RN
--- NOTE | 2017-08-21 17:16 | ASDISCHSUM ---
Discharge Information Plan Status:SNF Medically Cleared to Leave: Discharge Date:08/21/2017 01:27 PM D/C Disposition:[facility] ADT D/C Disposition:[facility] Projected Discharge Date:08/21/2017 11:00 AM Transportation at D/C:ALS/BLS Discharge Delay Reason: Follow-Up Date:08/21/2017 11:00 AM Discharge Slot: Final Diagnosis: Placement Information Referral Type:*Mcfp/SNF Referral ID:[id number] Provider Name:[facility] Address 1:[address] Address 2: City:[place] Selection Factors: State[place] Referral Type:*Hospice Referral ID:[id number] Provider Name:[facility] Address 1:[address] [place] Address 2: City:[place] Selection Factors: State:[place] Patient Contact Information Contact Name:FRANCIE Relationship: Address:[address] [place] [address] Work Phone: City:[place] Alternate Phone: State/Zip Code:[place] [address] Email: Financial Information Financial Class:HMO and PPO Plans Primary Plan Desc:NAUN RODRIGUEZ Primary Plan Number:[id number] Secondary Plan Desc: Secondary Plan Number: Assessment Information [facility] Initial CM Assessment Living Arrangements What is your living Answers: With Spouse arrangement? Who do you live with? Type Of Residence What kind of residence do Answers: House you live in? Discharge Plan Comments Coordination Status Comments Notes: Pts case discussed in morning rounds. Pt is a 87 y/o man admitted for dyspnea, hyperkalemia, afib, and elevated trop. PT is recommending home w/ existing services. Pt has caregivers that are w/ pt daily. Pt has [employer] [employer] and goes to a day program 3x a week. CM spoke to Lisa Denny NP at [facility]. Pts cor status needs to be changed to DNR. Dr. Martinez is aware. Lisa will be sending over pts MOST form. Lisa reports that pt does not have any interested in stopping his daily consumption of ETOH. Lisa would like to be notified once pt is medically stable to d/c and info faxed over (P#: [phone], F#: [phone]). CM to follow. Plan: Home w/ [facility] f/u Date Signed: 08/18/2017 01:53 PM Electronically Signed By:KATIE Herrera [facility] CM Progress Note CM Note CM Note Notes: Pts case discussed in tx rounds. CM spoke to Jordyn at [facility] regarding d/c POC. Jordyn reports that the goal is to sign pt up w/ hospice. Jordyn is hoping that Dr. Martinez is able to touch base w/ Dr. Bell at [facility]. CM to follow. Plan: Home w/ [facility] Date Signed: 08/19/2017 02:44 PM Electronically Signed By:KATIE Herrera [facility] PETER Progress Note CM Note CM Note Notes: CM spoke to Dr. Millan and JACQUELYN Mancuso regarding d/c POC. Jordyn from [facility] is arranging for [facility] to come in and meet w/ pt and for a hospice conversation. Pt and is agreeable to going to [facility] with [facility] Hospice. Anticipate d/c for tomorrow. [facility] will set up transport. Pt will need to go in a stretcher and will require o2. Referral sent to [facility] and [facility]. CM completed non triggering PASRR. CM to follow. Plan: [facility]/ [facility] Date Signed: 08/20/2017 12:18 PM Electronically Signed By:KATIE Herrera [facility] CM Progress Note CM Note CM Note Notes: CM spoke to Jordyn at [facility]. Jordyn set up a stretcher for 1PM. [facility] will meet pt at [facility] at 2PM. Pts will meet pt at the hospital and ride w/ pt to [facility]. Brianna at [facility] will be the point person to call tomorrow. Her number is [phone]. CM to follow. Plan: [facility]/ [facility] Date Signed: 08/20/2017 03:20 PM Electronically Signed By:KATIE Herrera Case Management Discharge Plan Note Case Management Discharge Discharge Order Complete? Answers: Yes Patient to Obtain Answers: Other Notes: [facility] Medications Transport will Pick (Date 08/21/2017 01:00 PM & Time) Case Management Transport Answers: Yes Form Complete Faxed Final Orders Answers: Yes Notes: no PCS needed per [facility] Agency/Facility Transfer Answers: Yes Report Printed & Faxed to Receiving Agency Family Notified Answers: Yes Discharge Comments Notes: Pt will be picked up at 1300 today and transported to [facility]. [facility] Hospice will meet him there at 1400. Confirmed transport and Hospice mtg time w/Lauren from [facility] this AM. Orders and info sent to Brianna at - conf rec'd. Orders sent to [facility] as well. Brianna at reported that pt's is there at [facility] and therefore will not ride in ambulance w/pt to facility. Pt informed of this. Discussed w/ and RN who will call report. Date Signed: 08/21/2017 12:25 PM Electronically Signed By:Jenny Barrett RN Intervention Information
== END 2017-08-21 13:27 | DRG 291 ==
LOC: F2W 15:35
PROVIDERS: ADMIT Hospitalist; ATTEND Hospitalist
DX: I11.0 Hypertensive heart disease with heart failure (principal); I50.21 Acute systolic (congestive) heart failure; J96.21 Acute and chronic respiratory failure with hypoxia; G93.41 Metabolic encephalopathy; J18.8 Other pneumonia, unspecified organism; N17.9 Acute kidney failure, unspecified; N39.0 Urinary tract infection, site not specified; F10.239 Alcohol dependence with withdrawal, unspecified; L89.152 Pressure ulcer of sacral region, stage 2; I48.91 Unspecified atrial fibrillation; I27.20 Pulmonary hypertension, unspecified; J44.9 Chronic obstructive pulmonary disease, unspecified; Z87.891 Personal history of nicotine dependence
CPT/HCPCS: 97162-GP; 97166-GO; 97535-GO; J0456; J0696; J1644; J1940; J3411